=== PATIENT | female | born 1995 | race Caucasian/White ===

== ENCOUNTER 2024-07-19 14:56 | Emergency (ER) | payer OTHER ==
[~2024-07-19] VITALS: Ht 157.5 cm; Wt 48.1 kg
[2024-07-19] MEDS ORDERED: FLUCONAZOLE 100 MG TABLET ONE (15:29)
[2024-07-19] MEDS: FLUCONAZOLE 100 MG TABLET PO ONE (15:30)
[2024-07-19 15:57] LABS: *BILIRUBIN,URIN NEGATIVE (NEGATIVE); *CLARITY,URINE CLEAR (CLEAR); *COLOR,URINE YELLOW (YELLOW); *KETONES,URINE NEGATIVE (NEGATIVE); *PROTEIN,URINE NEGATIVE (NEGATIVE); *UROBILINOGEN,URINE 0.2 E.U./dl (NORMAL); LEUKOCYTE ESTERASE ,URINE TRACE (NEGATIVE); NITRITE, URINE NEGATIVE (NEGATIVE); UGLUCOSE NEGATIVE (NEGATIVE)
[2024-07-19 16:06] LABS: *BLOOD, URINE TRACE (NEGATIVE)
[2024-07-19 16:07] LABS: *URINE HCG, QUAL NEGATIVE (NEGATIVE)
[2024-07-19] MEDS ORDERED: FLUC150T PO (16:17)
[2024-07-19 16:23] LABS: RBC,URINE 0-3 /HPF (0-3)
[2024-07-19 16:24] VITALS: BP 121/81; O2SAT 98
[2024-07-19 16:24] LABS: BACTERIA,URINE MODERATE /HPF (NONE SEEN); SQUAMOUS EPITHELIAL CELL,UR MANY /HPF (NONE SEEN); WBC,URINE 0-3 /HPF (0-3)
== END 2024-07-19 16:24 | disposition home or self-care (01) ==
LOC: ER 14:56
DX: B37.31 Acute candidiasis of vulva and vagina (principal); R10.2 Pelvic and perineal pain; Z79.899 Other long term (current) drug therapy
CPT/HCPCS: 76856; 84703; A4606; A4663

== ENCOUNTER 2025-02-08 15:59 | Emergency (ER) | payer OTHER ==
[~2025-02-08] VITALS: Ht 157.5 cm; Wt 70.8 kg
[~2025-02-08 15:59] MED LIST: FLUC150T PO
[2025-02-08] MEDS ORDERED: SERT100T PO (16:18)
[2025-02-08] MEDS ORDERED: CICL6.6S5 TP (17:35)
[2025-02-08 17:45] VITALS: BP 128/65; TEMP 97.9; O2SAT 98
== END 2025-02-08 17:46 | disposition home or self-care (01) ==
LOC: ER 15:59
DX: B35.1 Tinea unguium (principal); F32.A Depression, unspecified; Q78.6 Multiple congenital exostoses; H40.9 Unspecified glaucoma; Z79.899 Other long term (current) drug therapy; Z88.7 Allergy status to serum and vaccine
CPT/HCPCS: A4606; A4663